=== PATIENT | female | born 1995 | race Caucasian/White ===

== ENCOUNTER 2016-08-05 14:49 | Emergency (ER) | payer MEDICAID ==
[2016-08-05 14:58] VITALS: RESP 16
[2016-08-05 16:02] LABS: COLOR YELLOW; LEUKOCYTE ESTERASE,URINE 2+ (NEGATIVE); NITRITE,URINE NEGATIVE (NEGATIVE)
[2016-08-05 16:06] LABS: BACTERIA TRACE /hpf (NONE SEEN)
--- NOTE | 2016-08-05 16:22 | EDPHY ---
H & P Stated Complaint: abd pain, n/v, fatigue, abscess left axillary, positive home preg test - Personal History LMP (Females 10-55): Current Tetanus Diphtheria and Acellular Pertussis (TDAP): Yes Tetanus Vaccine Date: <10 YRS - Medical/Surgical History Hx Asthma: No Hx Chronic Respiratory Disease: No Hx Diabetes: No Hx Cardiac Disease: No Hx Renal Disease: No Hx Cirrhosis: No Hx Alcoholism: No Hx HIV/AIDS: No Hx Splenectomy or Spleen Trauma: No Other PMH: gall stones, anxiety, splenectomy - Social History Smoking Status: Current every day smoker Time Seen by Provider: 08/05/16 16:01 HPI/ROS: CHIEF COMPLAINT: , abdominal pain HISTORY OF PRESENT ILLNESS: 21-year-old female last menstrual period 3 years ago, had a recent positive home test, complaining of intermittent spotting and postcoital vaginal bleeding and cramping for the past 3 weeks. Lesion may be anywhere between 2 day weeks . Positive increased frequency. No back or flank pain. No nausea or vomiting. No peripheral edema. No chest pain. No dyspnea. Patient also like me to evaluate 1 week of a left axillary tender area. PRIMARY CARE PROVIDER: Dr. Pamela Bhatti REVIEW OF SYSTEMS: A ten point review of systems was performed and is negative with the exception of the items mentioned in the HPI PAST MEDICAL & SURGICAL HISTORY: . Cholecystectomy 2013 SOCIAL HISTORY: positive daily smoker. No alcohol. No drug use. PHYSICAL EXAM (Prior to examination, patient consented to physical exam, hands were washed and my usual and customary physical exam procedures followed) 1) GENERAL: Well-developed, well-nourished, alert and oriented. Appears to be in no acute distress. 2) HEAD: Normocephalic, atraumatic 3) HEENT: Pupils equal, round, reactive to light bilaterally. Sclera anicteric. 4) NECK: Full range of motion, no meningeal signs. 5) LUNGS: Clear auscultation bilaterally, no wheezes, no rhonchi, no retractions. 6) HEART: Regular rate and rhythm, no murmur, no heave, no gallop. 7) ABDOMEN: No guarding, no rebound, no focal tenderness, negative McBurney's, negative Montejo's, negative Rovsing's, negative peritoneal sign, I am unable to elicit abdominal pain on exam 8) MUSCULOSKELETAL: Left axilla: 2.5 cm diameter erythematous indurated mass consistent with cutaneous abscess. Moving all extremities, no focal areas of tenderness, no obvious trauma. No peripheral edema or discoloration. 9) BACK: No CVA tenderness, no midline vertebral tenderness, no fluctuance, no step-off, no obvious trauma, no visual or palpable abnormality. 10) SKIN: No rash, no petechiae. 11) Psychiatric: Patient is oriented X 3, there is no agitation. DIFFERENTIAL DIAGNOSIS: In no particular include but limited to spontaneous , threatened , ectopic (Raheel Koenig) Constitutional: Initial Vital Signs Temperature (C) 36.6 C 08/05/16 14:54 Heart Rate 115 H 08/05/16 14:54 Respiratory Rate 16 08/05/16 14:54 Blood Pressure 116/64 08/05/16 14:54 O2 Sat (%) 97 08/05/16 14:54 O2 Delivery Mode Room Air Allergies/Adverse Reactions: Latex, Natural Rubber Allergy (Verified 01/26/16 00:16) [place] Allergy (Mild, Uncoded 01/26/16 00:16) Rash Home Medications: Medication Instructions Recorded Cephalexin [Keflex] 500 mg PO TID 10 Days 08/05/16 Medical Decision Making - Diagnostics Imaging Results: Imaging Impressions Obstetrics Ultrasound 08/05/16 17:46 Impression: 1. Single viable intrauterine gestation with EGA by ultrasound of 7 weeks with estimated date of delivery by ultrasound of 03/24/2017. 2. Consider follow up anatomy scan. Findings discussed with Raheel Koenig PAC at 19:24 hour, 08/05/2016. Procedures: Procedure: Abscess drainage. The patient's abscess was located on the left axilla. I obtained verbal consent from the patient to drain the abscess who was informed about the possibility of bleeding and pain. The abscess was incised with a scalpel and a moderate amount of purulent drainage was expressed. I irrigated the wound and wound culture obtained . The patient tolerated the procedure well. The procedure was performed by myself. (Raheel Koenig) ED Course/Re-evaluation: The patient was evaluated and managed by the physician's information services assistant. My cosignature indicates that I reviewed the chart and I agree with the findings and plan of care as documented. I am the secondary supervising physician. ( Jennifer Laird) 5:05 p.m.: Rh positive. 7:29 p.m.: Patient re-evaluated. Discussed her imaging results showing a 7 week IUP. No evidence of ectopic . She does have bacteriuria. Urine cultured and she will be treated with Keflex. She also has a cutaneous abscess in her left axilla with no history of MRSA. Skin anjum should be covered by Keflex as well. She has been given usual customary skin and precautions instructions and recommend follow up with [facility] matern[facility]. Discussed case with Dr Laird in [place]. Recommended smoking cessation. (Raheel Koenig) - Data Points Laboratory Results: Laboratory Results 08/05/16 16:30 08/05/16 16:30 08/05/16 08/05/16 08/05/16 16:30 16:30 16:30 WBC 10.24 10^3/uL H 10^3/uL (3.80-9.50) RBC 4.60 10^6/uL 10^6/uL (4.18-5.33) Hgb 13.2 g/dL g/dL (12.6-16.3) Hct 38.4 % % (38.0-47.0) MCV 83.5 fL fL (81.5-99.8) MCH 28.7 pg pg (27.9-34.1) MCHC 34.4 g/dL g/dL (32.4-36.7) RDW 13.4 % % (11.5-15.2) Plt Count 344 10^3/uL 10^3/uL (150-400) MPV 9.5 fL fL (8.7-11.7) Neut % (Auto) 71.3 % % (39.3-74.2) Lymph % (Auto) 17.8 % % (15.0-45.0) [place] % (Auto) 8.1 % % (4.5-13.0) Eos % (Auto) 2.1 % % (0.6-7.6) Baso % (Auto) 0.4 % % (0.3-1.7) Nucleat RBC Rel Count 0.0 % % (0.0-0.2) Absolute Neuts (auto) 7.31 10^3/uL H 10^3/uL (1.70-6.50) Absolute Lymphs (auto) 1.82 10^3/uL 10^3/uL (1.00-3.00) Absolute Monos (auto) 0.83 10^3/uL H 10^3/uL (0.30-0.80) Absolute Eos (auto) 0.21 10^3/uL 10^3/uL (0.03-0.40) Absolute Basos (auto) 0.04 10^3/uL 10^3/uL (0.02-0.10) Absolute Nucleated RBC 0.00 10^3/uL 10^3/uL (0-0.01) Immature Gran % 0.3 % % (0.0-1.1) Immature Gran # 0.03 10^3/uL 10^3/uL (0.00-0.10) Sodium 136 mEq/L mEq/L (134-144) Potassium 4.2 mEq/L mEq/L (3.5-5.2) Chloride 103 mEq/L mEq/L (97-110) Carbon Dioxide 22 mEq/l mEq/l (22-31) Anion Gap 11 mEq/L mEq/L (8-16) BUN 6 mg/dL L mg/dL (7-23) Creatinine 0.5 mg/dL L mg/dL (0.6-1.0) Estimated GFR > 60 Glucose 89 mg/dL mg/dL (70-100) Calcium 9.3 mg/dL mg/dL (8.5-10.4) Total Bilirubin 0.4 mg/dL mg/dL (0.1-1.4) Conjugated Bilirubin 0.4 mg/dL mg/dL (0.0-0.5) Unconjugated Bilirubin 0.0 mg/dL mg/dL (0.0-1.1) AST 66 IU/L H IU/L (14-46) ALT 91 IU/L H IU/L (9-52) Alkaline Phosphatase 76 IU/L IU/L (38-126) Total Protein 7.5 g/dL g/dL (6.3-8.2) Albumin 4.0 g/dL g/dL (3.5-5.0) Lipase 62.0 IU/L IU/L (23-300) Beta HCG, Quant 87342.00 mIU/mL H mIU/mL (0-4.83) Urine Color Urine Appearance Urine pH Ur Specific [place] Urine Protein Urine Ketones Urine Blood Urine Nitrate Urine Bilirubin Urine Urobilinogen Ur Leukocyte Esterase Urine RBC Urine WBC Ur Epithelial Cells Urine Bacteria Urine Glucose Urine Test Patient ABO/Rh AB POSITIVE 08/05/16 08/05/16 15:50 15:50 WBC RBC Hgb Hct MCV MCH MCHC RDW Plt Count MPV Neut % (Auto) Lymph % (Auto) [place] % (Auto) Eos % (Auto) Baso % (Auto) Nucleat RBC Rel Count Absolute Neuts (auto) Absolute Lymphs (auto) Absolute Monos (auto) Absolute Eos (auto) Absolute Basos (auto) Absolute Nucleated RBC Immature Gran % Immature Gran # Sodium Potassium Chloride Carbon Dioxide Anion Gap BUN Creatinine Estimated GFR Glucose Calcium Total Bilirubin Conjugated Bilirubin Unconjugated Bilirubin AST ALT Alkaline Phosphatase Total Protein Albumin Lipase Beta HCG, Quant Urine Color YELLOW Urine Appearance CLEAR Urine pH 6.0 (5.0-7.5) Ur Specific [place] 1.008 (1.002-1.030) Urine Protein NEGATIVE (NEGATIVE) Urine Ketones NEGATIVE (NEGATIVE) Urine Blood 1+ H (NEGATIVE) Urine Nitrate NEGATIVE (NEGATIVE) Urine Bilirubin NEGATIVE (NEGATIVE) Urine Urobilinogen NEGATIVE EU EU (0.2-1.0) Ur Leukocyte Esterase 2+ H (NEGATIVE) Urine RBC 1-3 /hpf /hpf (0-3) Urine WBC 1-3 /hpf /hpf (0-3) Ur Epithelial Cells 1+ /lpf /lpf (NONE-1+) Urine Bacteria TRACE /hpf H /hpf (NONE SEEN) Urine Glucose NEGATIVE (NEGATIVE) Urine Test POSITIVE Patient ABO/Rh Departure - Departure Disposition: Home, Routine, Self-Care Clinical Impression: Abscess of left axilla, Intrauterine Urinary tract infection Qualifiers: Urinary tract infection type: acute cystitis Hematuria presence: with hematuria Qualified Code(s): N30.01 - Acute cystitis with hematuria Condition: Good Instructions: Abscess (ED), (ED) Additional Instructions: Return to the ER if you develop further vaginal bleeding, abdominal cramping, fever, chills, or any other symptoms that concern you. Referrals: Pamela Bhatti MD [Primary Care Provider] - 1 day without fail Prescriptions: Cephalexin [Keflex] 500 mg PO TID 10 Days
[2016-08-05 16:45] LABS: % IMMATURE GRANULYOCYTES 0.3 % (0.0-1.1); ABSOLUTE IMMATURE GRANULOCYTES 0.03 10^3/uL (0.00-0.10); ADD DIFF? NO; ADD MORPH? NO; ADD SCAN? NO; ATYPICAL LYMPHOCYTE FLAG 50 (0-99); FRAGMENT RBC FLAG 0 (0-99); HEMATOCRIT 38.4 % (38.0-47.0); HEMOGLOBIN 13.2 g/dL (12.6-16.3); LEFT SHIFT FLG 0 (0-99); LIPEMIA HEMOLYSIS FLAG 90 (0-99); MEAN CELL HEMOGLOBIN 28.7 pg (27.9-34.1); MEAN CELL HEMOGLOBIN CONCENTR. 34.4 g/dL (32.4-36.7); MEAN CELL VOLUME 83.5 fL (81.5-99.8); MEAN PLATELET VOLUME 9.5 fL (8.7-11.7); PLATELET CLUMPS FLAG 10 (0-99); PLATELET COUNT 344 10^3/uL (150-400); RED CELL DISTRIBUTION WIDTH 13.4 % (11.5-15.2)
[2016-08-05 17:01] LABS: ALANINE AMINOTRANSFERASE 91 IU/L (9-52); ALKALINE PHOSPHATASE 76 IU/L (38-126); ANION GAP 11 mEq/L (8-16); ASPARTATE AMINOTRANSFERASE 66 IU/L (14-46); BILIRUBIN,TOTAL 0.4 mg/dL (0.1-1.4); BILIRUBIN-CONJUGATED 0.4 mg/dL (0.0-0.5); CALCIUM 9.3 mg/dL (8.5-10.4); CARBON DIOXIDE 22 mEq/l (22-31); CHLORIDE 103 mEq/L (97-110); CREATININE 0.5 mg/dL (0.6-1.0); GLOMERULAR FILTRATION RATE > 60; GLUCOSE 89 mg/dL (70-100); POTASSIUM 4.2 mEq/L (3.5-5.2); SODIUM 136 mEq/L (134-144); TOTAL PROTEIN 7.5 g/dL (6.3-8.2)
[2016-08-05 19:53] VITALS: BP 126/77; PULSE 91; TEMP 98.2; O2SAT 99
== END 2016-08-05 19:53 | disposition home or self-care (01) ==
PROC: 0H9CXZZ Drainage of Left Upper Arm Skin, External Approach (ICD-10-PCS; principal; 2016-08-05)
DX: O23.11 Infections of bladder in pregnancy, first trimester (principal); B95.62 Methicillin resistant Staphylococcus aureus infection as the cause of diseases classified elsewhere; O99.711 Diseases of the skin and subcutaneous tissue complicating pregnancy, first trimester; L02.412 Cutaneous abscess of left axilla; F17.200 Nicotine dependence, unspecified, uncomplicated; Z3A.01 Less than 8 weeks gestation of pregnancy; Z90.49 Acquired absence of other specified parts of digestive tract; Z91.040 Latex allergy status

== ENCOUNTER 2016-10-22 20:22 | Observation (INO) | payer MEDICAID ==
--- NOTE | 2016-10-22 20:42 | EDPHY ---
HPI/HX/ROS/PE/MDM Narrative: CHIEF COMPLAINT: Feeling faint. HISTORY OF PRESENT ILLNESS: The patient is a 21-year-old female presenting with feeling faint this evening. The patient was started on Prozac and Clonidine three days ago. She took these medications at the same time this evening and believes she may have taken her Clonidine too close to the last dose earlier today. After taking these medications she began to feel faint with standing and reports two syncopal episodes. She developed intermittent episodes of acute chest pain, the longest episode lasting about 30 minutes. No associated shortness of breath or palpitations. The patient was recently prescribed the Prozac and Clonidine four days ago for PTSD, Anxiety, and Depression. She denies fever, chills, vomiting, diarrhea, urinary complaints, or headache. REVIEW OF SYSTEMS: Aside from elements discussed in the HPI, a comprehensive 10-point review of systems was reviewed and is negative. PAST MEDICAL HISTORY: Splenectomy, PTSD, Anxiety, Depression, . SOCIAL HISTORY: Daily cigarette smoker. No marijuana use. No illicit drug use. No alcohol use. VITAL SIGNS: Reviewed by me blood pressure is 92 systolic on my examination. GENERAL: Well-developed, well-nourished, somnolent. HEENT: Atraumatic. Eyes: No icterus, no injection. Mouth: moist mucous membranes. No erythema or lesions. Neck: supple with no adenopathy. LUNGS: Clear to auscultation bilaterally, no wheezes, rhonchi or rales. CARDIAC: Regular rate and rhythm, no rubs, murmurs or gallops. ABDOMEN: Soft, nontender, nondistended, bowel sounds normal. CHEST: Left axillary tenderness, right chest wall tenderness. BACK: No CVA tenderness. EXTREMITIES: No trauma. No edema. Range of motion is normal throughout. NEURO: Alert and oriented, grossly nonfocal. SKIN: Warm and dry, no rash. PSYCHIATRIC: Normal mentation, no agitation. Portions of this note were transcribed by a medical office manager. I personally performed a history, physical exam, medical decision making, and confirmed accuracy of information the transcribed note. ED Course: Patient presets with syncopal episodes after taking recently prescribed Prozac and Clonidine at the same time this evening. The patient has taken these medications in the past and states she developed chest pain due to the medication. Patient reports chest pain lasting up to 30 minutes this evening. No shortness of breath, palpitation, or nausea. Plan for lab work and EKG. I reviewed the patient's past medical records from July 2016. The patient was 7 weeks at that time. She tells me she had a miscarriage. She is unsure of her last menstrual period. Patient does not use control. 12-LEAD EKG: Please see the full report in [facility]. My interpretation: Sinus rhythm. 9:35 p.m.: Lab work is unremarkable. I reevaluated the patient, she is still hypotensive at 92/57. Patient received a second liter of fluid. Patient remains borderline hypotensive. She has become less somnolent. Half-life of clonidine is 6-20 hours. Patient will be admitted to the hospital for further observation 10:25 p.m.: I spoke to the hospitalist, the patient will be admitted to Dr. Armstrong. Urine tox screen is positive for methamphetamines. MDM: Differential diagnoses for the patient's symptom complex was considered including but not limited to drug or alcohol use, drug or alcohol withdrawal, dehydration, electrolyte abnormalities, cardiac cause. - Data Points Laboratory Results: Laboratory Results 10/22/16 20:45 10/22/16 20:45 10/22/16 10/22/16 10/22/16 22:40 20:45 20:45 WBC RBC Hgb Hct MCV MCH MCHC RDW Plt Count MPV Neut % (Auto) Lymph % (Auto) [place] % (Auto) Eos % (Auto) Baso % (Auto) Nucleat RBC Rel Count Absolute Neuts (auto) Absolute Lymphs (auto) Absolute Monos (auto) Absolute Eos (auto) Absolute Basos (auto) Absolute Nucleated RBC Immature Gran % Immature Gran # Sodium 143 mEq/L mEq/L (134-144) Potassium 3.8 mEq/L mEq/L (3.5-5.2) Chloride 112 mEq/L H mEq/L (97-110) Carbon Dioxide 21 mEq/l L mEq/l (22-31) Anion Gap 10 mEq/L mEq/L (8-16) BUN 12 mg/dL mg/dL (7-23) Creatinine 0.7 mg/dL mg/dL (0.6-1.0) Estimated GFR > 60 Glucose 90 mg/dL mg/dL (70-100) Calcium 9.7 mg/dL mg/dL (8.5-10.4) Troponin I < 0.012 ng/mL ng/mL (0-0.034) Beta HCG, Qual Urine Opiates Screen NEGATIVE (NEGATIVE) Urine Barbiturates NEGATIVE (NEGATIVE) Ur Phencyclidine Scrn NEGATIVE (NEGATIVE) Ur Amphetamine Screen NON-NEGATIVE H (NEGATIVE) U Benzodiazepines Scrn NEGATIVE (NEGATIVE) Urine Cocaine Screen NEGATIVE (NEGATIVE) U Marijuana (THC) Screen NEGATIVE (NEGATIVE) 10/22/16 10/22/16 20:45 20:43 WBC 5.61 10^3/uL 10^3/uL (3.80-9.50) RBC 4.16 10^6/uL L 10^6/uL (4.18-5.33) Hgb 12.2 g/dL L g/dL (12.6-16.3) Hct 36.4 % L % (38.0-47.0) MCV 87.5 fL fL (81.5-99.8) MCH 29.3 pg pg (27.9-34.1) MCHC 33.5 g/dL g/dL (32.4-36.7) RDW 13.3 % % (11.5-15.2) Plt Count 333 10^3/uL 10^3/uL (150-400) MPV 9.9 fL fL (8.7-11.7) Neut % (Auto) 48.1 % % (39.3-74.2) Lymph % (Auto) 39.8 % % (15.0-45.0) [place] % (Auto) 9.4 % % (4.5-13.0) Eos % (Auto) 2.1 % % (0.6-7.6) Baso % (Auto) 0.4 % % (0.3-1.7) Nucleat RBC Rel Count 0.0 % % (0.0-0.2) Absolute Neuts (auto) 2.70 10^3/uL 10^3/uL (1.70-6.50) Absolute Lymphs (auto) 2.23 10^3/uL 10^3/uL (1.00-3.00) Absolute Monos (auto) 0.53 10^3/uL 10^3/uL (0.30-0.80) Absolute Eos (auto) 0.12 10^3/uL 10^3/uL (0.03-0.40) Absolute Basos (auto) 0.02 10^3/uL 10^3/uL (0.02-0.10) Absolute Nucleated RBC 0.00 10^3/uL 10^3/uL (0-0.01) Immature Gran % 0.2 % % (0.0-1.1) Immature Gran # 0.01 10^3/uL 10^3/uL (0.00-0.10) Sodium Potassium Chloride Carbon Dioxide Anion Gap BUN Creatinine Estimated GFR Glucose Calcium Troponin I Beta HCG, Qual NEGATIVE Urine Opiates Screen Urine Barbiturates Ur Phencyclidine Scrn Ur Amphetamine Screen U Benzodiazepines Scrn Urine Cocaine Screen U Marijuana (THC) Screen Medications Given: Discontinued Medications Sodium Chloride (Ns) 1,000 mls @ 0 mls/hr IV ONCE ONE PRN Reason: Wide Open Stop: 10/22/16 20:58 Last Admin: 10/22/16 20:57 Dose: 1,000 mls Sodium Chloride (Ns) 1,000 mls @ 0 mls/hr IV ONCE ONE; Wide Open PRN Reason: Protocol Stop: 10/22/16 20:58 Last Admin: 10/22/16 21:50 Dose: 1,000 mls General Time Seen by Provider: 10/22/16 20:37 Initial Vital Signs: Initial Vital Signs Temperature (C) 37.1 C 10/22/16 20:25 Heart Rate 84 10/22/16 20:25 Respiratory Rate 16 10/22/16 20:25 Blood Pressure 108/63 10/22/16 20:25 O2 Sat (%) 98 10/22/16 20:25 O2 Delivery Mode Room Air Allergies/Adverse Reactions: Latex, Natural Rubber Allergy (Verified 10/22/16 20:30) [place] Allergy (Mild, Uncoded 01/26/16 00:16) Rash nightshades Allergy (Uncoded 10/22/16 20:30) Home Medications: Medication Instructions Recorded Clonidine HCl 10/22/16 Prozac 20 MG (*) 10/22/16 Departure - Departure Disposition: [facility] In[facility] Acute Clinical Impression: Hypotension Overdose Qualifiers: Encounter type: initial encounter Injury intent: accidental or unintentional Qualified Code(s): T50.901A - Poisoning by unspecified drugs, medicaments and biological substances, accidental (unintentional), initial encounter Faintness Qualifiers: Syncope type: unspecified Qualified Code(s): R55 - Syncope and collapse Condition: Fair Referrals: Pamela Bhatti MD [Primary Care Provider] - As per Instructions Report Scribed for: Lilo Hairston Report Scribed by: Karlee Cadena Date of Report: 10/22/16 Time of Report: 20:57
--- NOTE | 2016-10-22 20:44 | CPEKG ---
Heart Rate: 68 RR Interval: 882 P-R Interval: 132 QRSD Interval: 76 QT Interval: 388 QTC Interval: 413 P [place]: 50 QRS [place]: 67 T Wave [place]: 57 EKG Severity - NORMAL ECG - EKG Impression: SINUS RHYTHM Electronically Signed By: Lilo Hairston 23-Oct-2016 00:42:29
[2016-10-22] MEDS ORDERED: NS 1,000 ML IV ONE ×2 (20:57)
[2016-10-22 20:59] LABS: % IMMATURE GRANULYOCYTES 0.2 % (0.0-1.1); ABSOLUTE IMMATURE GRANULOCYTES 0.01 10^3/uL (0.00-0.10); ADD DIFF? NO; ADD MORPH? NO; ADD SCAN? NO; ATYPICAL LYMPHOCYTE FLAG 40 (0-99); FRAGMENT RBC FLAG 0 (0-99); HEMATOCRIT 36.4 % (38.0-47.0); HEMOGLOBIN 12.2 g/dL (12.6-16.3); LEFT SHIFT FLG 0 (0-99); LIPEMIA HEMOLYSIS FLAG 80 (0-99); MEAN CELL HEMOGLOBIN 29.3 pg (27.9-34.1); MEAN CELL HEMOGLOBIN CONCENTR. 33.5 g/dL (32.4-36.7); MEAN CELL VOLUME 87.5 fL (81.5-99.8); MEAN PLATELET VOLUME 9.9 fL (8.7-11.7); PLATELET CLUMPS FLAG 0 (0-99); PLATELET COUNT 333 10^3/uL (150-400); RED BLOOD CELL COUNT 4.16 10^6/uL (4.18-5.33); RED CELL DISTRIBUTION WIDTH 13.3 % (11.5-15.2)
[2016-10-22 21:18] LABS: ANION GAP 10 mEq/L (8-16); CALCIUM 9.7 mg/dL (8.5-10.4); CARBON DIOXIDE 21 mEq/l (22-31); CHLORIDE 112 mEq/L (97-110); CREATININE 0.7 mg/dL (0.6-1.0); GLOMERULAR FILTRATION RATE > 60; GLUCOSE 90 mg/dL (70-100); POTASSIUM 3.8 mEq/L (3.5-5.2); SODIUM 143 mEq/L (134-144)
[2016-10-22] MEDS ORDERED: ONDANSETRON DISINTEGRATING 4 MG TAB PO PRN (23:16)
[2016-10-22] MEDS ORDERED: ACETAMINOPHEN 325 MG TAB PO PRN (23:16)
[2016-10-22] MEDS ORDERED: ONDANSETRON 4 MG/2 ML VIAL IVP PRN (23:16)
[2016-10-22] MEDS ORDERED: NS 1,000 ML IV SCH (23:45)
--- NOTE | 2016-10-22 23:58 | GHP ---
[f rep st] HISTORY AND PHYSICAL DATE OF ADMISSION: 10/22/2016 CHIEF COMPLAINT: Syncope, fatigue. HISTORY OF PRESENT ILLNESS: a 21-year-old female presenting with syncope today. At 9 a.m. this morning, she felt dizzy, but thought it was just because she did not have much to eat or drink. She then took clonidine dose at 9 a.m. and then again at 11 a.m, because "she spaced the timing of meds". She passed out 2 times while cleaning her room for a few seconds and then told her grandma that she needed to come to the emergency room. She started clonidine 4 days ago along with Prozac; prescribed by a provider at [facility]. She denies any fevers , chills, or sweats. No nausea, vomiting, diarrhea or dysuria. No headaches. No numbness or tingling. No chest pain or palpitations. REVIEW OF SYSTEMS: I completed a 10-point review of systems, negative except as noted in HPI. PAST MEDICAL HISTORY: Anxiety, depression. SURGICAL HISTORY: Cholecystectomy, spleen surgery. FAMILY HISTORY: None. SOCIAL HISTORY: Lives with her grandmother. Smokes 2 cigarettes a day. Denies alcohol or tobacco. Does not work or is not in school. Has previously been jailed. ALLERGIES: Latex. PHYSICAL EXAMINATION: VITAL SIGNS: Temperature 37.1, blood pressure 108/63, now 94/57. Heart rate in the 70s, respirations 16, 96% on room air. GENERAL: The patient is lying in bed, no acute distress. Somnolent, but talking appropriately. HEENT: Mildly dry mucous membranes. Oropharynx clear. CV: Regular rate and rhythm. No murmurs, gallops, or rubs. LUNGS: Clear to auscultation bilaterally. ABDOMEN: Soft, nontender, nondistended. Positive bowel sounds. : No suprapubic tenderness. MUSCULOSKELETAL: 5/5 upper and lower extremity strength. NEURO: 2 through 12 intact. No focal neuro deficits. Somnolent. PSYCH: Alert and oriented x3. Answering appropriately. LABS: WBC is 5, hemoglobin 12, hematocrit 36, platelets 333, sodium 143, potassium 3.8, chloride 112, carbon dioxide 21, anion gap 10, creatinine 0.7. Troponin less than 0.012. U-tox positive for amphetamines. ASSESSMENT AND PLAN: 1. Syncope: reports 2 episodes lasting only a few seconds. Likely due to clonidine doses too close together. Positive for amphetamine also. Dehydration might also be playing a role as well. No e/o arrhythmia, negative troponin. Monitor on telemetry and pulse ox overnight. IVFs. 2. Depression/anxiety: Will hold clonidine and Prozac. She denies any suicidal or homicidal ideations. 3. Amphetamine use: denied any drug use but positive U-tox. 4. Diet regular. 5. DVT prophylaxis. 6. Low-risk ambulatory. DISPOSITION: Patient warrants observation admission given acute syncope, mild hypotension, warranting telemetry. /[id number]/MODL MTDD
[2016-10-23 04:43] LABS: ANION GAP 6 mEq/L (8-16); CALCIUM 8.5 mg/dL (8.5-10.4); CARBON DIOXIDE 19 mEq/l (22-31); CHLORIDE 118 mEq/L (97-110); CREATININE 0.6 mg/dL (0.6-1.0); GLOMERULAR FILTRATION RATE > 60; GLUCOSE 112 mg/dL (70-100); POTASSIUM 3.6 mEq/L (3.5-5.2); SODIUM 143 mEq/L (134-144)
[2016-10-23 07:08] VITALS: BP 92/49; PULSE 74; RESP 16; TEMP 98.3; O2SAT 97
--- NOTE | 2016-10-23 09:53 | HOSPPROG ---
Hospitalist Progress Note Assessment/Plan: 21 yo f w syncope, neg workup home today see dc summary Subjective: no events tele Objective: Vital Signs Temp Pulse Resp BP Pulse Ox 36.8 C 74 16 92/49 L 97 10/23/16 07:05 10/23/16 07:05 10/23/16 07:05 10/23/16 07:05 10/23/16 07:05 Laboratory Results 10/23/16 03:39 10/22/16 10/23/16 10/24/16 05:59 05:59 05:59 Intake Total 2450 Balance 2450 - Physical Exam Constitutional: no apparent distress, appears nourished Eyes: PERRL, anicteric sclera Ears, Nose, Mouth, Throat: moist mucous membranes, hearing normal Cardiovascular: regular rate and rhythym, no murmur, rub, or gallop Respiratory: no respiratory distress Gastrointestinal: normoactive bowel sounds, soft, non-tender abdomen Genitourinary: no bladder fullness, No lynn in urethra Skin: warm Musculoskeletal: full muscle strength, no muscle tenderness Neurologic: AAOx3 ICD10 Worksheet Patient Problems: Problems Problem Status Onset Faintness Acute Hypotension Acute Overdose Acute Cholecystitis with cholelithiasis Acute MRSA (methicillin resistant Staphylococcus aureus) Acute 08/05/16
--- NOTE | 2016-10-23 10:14 | GDS ---
[f rep st] DISCHARGE SUMMARY DISCHARGE DIAGNOSES: Syncope probably secondary to close proximity of taking newly prescribed cloni dine together. HOSPITAL COURSE: Please see admission history and physical by Dr. Osorio Morales. The patient presented with syncope, she had taken clonidine a couple hours apart, this is a new medi cation for her. She was found to have mild anemia, nonischemic EKG, negative troponins. Not pregna nt. Not tachycardic or hypoxic. No events on telemetry. She is discharged home with negative work up for syncope. /[id number]/MODL
== END 2016-10-23 11:19 | disposition home or self-care (01) ==
LOC: F2W 10-23 00:36
PROVIDERS: ADMIT Internal Medicine; ATTEND Internal Medicine
DX: R55 Syncope and collapse (principal); I95.2 Hypotension due to drugs; T46.5X5A Adverse effect of other antihypertensive drugs, initial encounter; F43.10 Post-traumatic stress disorder, unspecified; F41.8 Other specified anxiety disorders; F17.210 Nicotine dependence, cigarettes, uncomplicated; F15.90 Other stimulant use, unspecified, uncomplicated
CPT/HCPCS: 93005; 96360; 99285; G0378; 80305

== ENCOUNTER 2016-12-21 20:55 | Emergency (ER) | payer MEDICAID ==
--- NOTE | 2016-12-21 20:56 | EDPHY ---
H & P Time Seen by Provider: 12/21/16 20:56 Constitutional: Initial Vital Signs Temperature (C) 36.7 C 12/21/16 20:55 Heart Rate 88 12/21/16 20:55 Respiratory Rate 16 12/21/16 20:55 Blood Pressure 130/89 H 12/21/16 20:55 O2 Sat (%) 99 12/21/16 20:55 O2 Delivery Mode Room Air Allergies/Adverse Reactions: Latex, Natural Rubber Allergy (Verified 10/22/16 20:30) Onesimo Allergy (Mild, Uncoded 01/26/16 00:16) Rash nightshades Allergy (Uncoded 10/22/16 20:30) Home Medications: Medication Instructions Recorded LIBRIUM 12/21/16 Medical Decision Making ED Course/Re-evaluation: CHIEF COMPLAINT: Sent from [facility] HISTORY OF PRESENT ILLNESS: 21 old female who has a history of alcohol and benzodiazepine abuse. She has been at the [facility] for a few days and she is no longer withdrawing. Her intelligence officer asked her to stay at the [facility] in order to prove her sobriety. However, due to her history of benzodiazepine abuse the [facility] cannot keep her there because of the [facility] protocol. This patient has no complaints however. The patient has no complaints of withdrawal symptoms. Patient states that her grandparents are willing to take her home. REVIEW OF SYSTEMS: A 10 point review of systems was performed and is negative with the exception of the elements mentioned in the history of present illness. PHYSICAL EXAM: HR, BP, O2 Sat, RR. Temp noted General Appearance: Alert, well hydrated, appropriate, and non-toxic appearing. Head: Atraumatic without scalp tenderness or obvious injury Eyes: Pupils equal, round, reactive to light and accommodation, EOMI, no trauma , no injection. Ears: Clear bilaterally, no perforation, normal landmarks Nose: Atraumatic, no rhinorrhea, clear. Throat: There is no erythema or exudates, no lesions, normal tonsils, mucus membranes moist. Neck: Supple, 2+ carotid upstroke, nontender, no lymphadenopathy. Respiratory: No retractions, no distress, no wheezes, and no accessory muscle use. Lungs are clear to auscultation bilaterally. Cardiovascular: Regular rate and rhythm, no murmurs, rubs, or gallops. Bilateral carotid, radial, dorsalis pedis, and posterior tibial pulses intact. Good capillary refill all extremities. Gastrointestinal: Abdomen is soft, nontender, non-distended, no masses, no rebound, no guarding, no peritoneal signs. Musculoskeletal: Normal active ROM of all extremities, atraumatic. Neurological: Alert, appropriate, and interactive. The patient has normal DTRs and non-focal cranial nerves, motor, sensory, and cerebellar exam. Skin: No rashes, good turgor, no nodules on palpation. Past medical history: Polysubstance abuse Past surgical history: Noncontributory Family history: Noncontributory Social history: Single, not employed, going home with her grandparents, history of polysubstance abuse DIFFERENTIAL DIAGNOSIS: Includes but is not limited to alcohol withdrawal, benzodiazepine withdrawal, psychiatric illness, polysubstance use MEDICAL DECISION MAKING: This 21-year-old female has no acute complaints or problems. [facility] however it became clear that she has a history of benzodiazepine abuse and the [facility] will not accept patients who may have benzodiazepine withdrawal symptoms. I do not believe this patient is having any withdrawal symptoms currently. She has a safe place to go which is at her grandparent's house. She is approaching officer which she has required to check in with with regularly. This patient does not need any laboratory studies or imaging studies or workup. We will send her home with her grandparents to follow up as needed will forensic structural engineer outpatient addiction recovery resources. Departure - Departure Disposition: Home, Routine, Self-Care Clinical Impression: Polysubstance abuse Condition: Good Instructions: Polysubstance Abuse (ED) Referrals: Patient,NotPresent [Primary Care Provider] - As per Instructions Report Scribed for: Agustín Rosenthal Report Scribed by: Michelle Saldivar Date of Report: 12/21/16 Time of Report: 21:11
[2016-12-21 21:11] VITALS: O2SAT 99
[2016-12-21 22:20] VITALS: BP 119/79; PULSE 94; RESP 18; TEMP 97.7
== END 2016-12-21 22:20 | disposition home or self-care (01) ==
LOC: EDUNIT#
DX: F19.10 Other psychoactive substance abuse, uncomplicated (principal); Z91.040 Latex allergy status

== ENCOUNTER 2017-02-22 11:07 | Emergency (ER) | payer MEDICAID ==
--- NOTE | 2017-02-22 13:47 | EDPHY ---
H & P Stated Complaint: L leg swollen x 1 mo;wants eval for blood clot HPI/ROS: Chief complaint: Left leg swelling History of present illness: This is a 21-year-old female who presents to the emergency department for left leg swelling. Patient reports she has had swelling for the last month. Occasional the leg becomes red. She denies precipitating factors. She denies alleviating or aggravating factors. She denies other associated signs or symptoms including no history of trauma. No abnormal coolness or paresthesias in the leg. No report of chest pain, shortness of breath or cough. No fevers. Review of systems: A 10 point review of systems was obtained and other than described above was negative - Personal History LMP (Females 10-55): Now Tetanus Vaccine Date: <10 YRS - Medical/Surgical History Hx Asthma: No Hx Chronic Respiratory Disease: No Hx Diabetes: No Hx Cardiac Disease: No Hx Renal Disease: No Hx Cirrhosis: No Hx Alcoholism: No Hx HIV/AIDS: No Hx Splenectomy or Spleen Trauma: Yes Other PMH: gall stones, depression/anxiety, ptsd, splenectomy,miscarriages - Social History Smoking Status: Current every day smoker - Physical Exam Exam: General: Alert, nontoxic Skin: No lesions to the left leg noted. Musculoskeletal: No asymmetry to the left leg as compared to the right. There is no tenderness to palpation. She is moving the left leg in the hip, knee, ankle and toes without difficulty. She is ambulating well. Vascular: DP and PT pulses 2+. Capillary refill brisk in the toes left foot. Neurologic: Sensation appears intact in left leg. Constitutional: Initial Vital Signs Temperature (C) 36.7 C 02/22/17 11:10 Heart Rate 102 H 02/22/17 11:10 Respiratory Rate 16 02/22/17 11:10 Blood Pressure 116/76 02/22/17 11:10 O2 Sat (%) 97 02/22/17 11:10 O2 Delivery Mode Room Air Allergies/Adverse Reactions: Latex, Natural Rubber Allergy (Verified 02/22/17 11:09) Onesimo Allergy (Mild, Uncoded 01/26/16 00:16) Rash nightshades Allergy (Uncoded 10/22/16 20:30) Home Medications: Medication Instructions Recorded GABAPENTIN 400 mg PO 02/22/17 traZODone [traZODONE 100MG (*)] 100 mg PO 02/22/17 Medical Decision Making - Diagnostics Imaging: Discussed imaging studies w/ head and neck surgeon Radiologist ED Course/Re-evaluation: Patient is seen under the supervision of my secondary supervising physician Dr. James Galvez. Patient presents to the emergency department for left leg pain and swelling. Physical exam is benign. The leg appears neurovascularly intact. Ultrasound is negative. I discussed with patient it is not clear as to the cause of her symptoms. Patient will be discharged home. She is to follow up with the primary care doctor for recheck. Return precautions are given. Differential Diagnosis: Included but not limited to contusion, sprain or strain, superficial thrombophlebitis, DVT, unlikely necrotizing fasciitis or arterial occlusion Departure - Departure Disposition: Home, Routine, Self-Care Clinical Impression: Leg swelling Condition: Good Instructions: Leg Edema (ED) Additional Instructions: Follow-up with your primary care doctor for continued evaluation and care If symptoms worsen or new symptoms develop return to the emergency room for recheck Referrals: NOT,SURE [Other] - As per Instructions
[2017-02-22 13:55] VITALS: BP 99/67; PULSE 81; RESP 19; TEMP 98.2; O2SAT 95
== END 2017-02-22 14:00 | disposition home or self-care (01) ==
DX: M79.89 Other specified soft tissue disorders (principal); F17.200 Nicotine dependence, unspecified, uncomplicated; Z91.040 Latex allergy status